=== PATIENT | male | born 1970 | race Caucasian/White ===

== ENCOUNTER 2023-12-28 06:34 | Emergency (ER) | payer OTHER ==
[2023-12-28 06:50] VITALS: BP 151/86; PULSE 97; RESP 20; TEMP 97.6; BMI 32.1
[2023-12-28] MEDS ORDERED: IBUPROFEN 400 MG TABLET (FP) PO ONE (08:33)
[2023-12-28] MEDS: IBUPROFEN 400 MG TABLET (FP) PO ONE (08:42)
== END 2023-12-28 09:50 | disposition home or self-care (01) ==
LOC: JER 06:34
DX: M79.602 Pain in left arm (principal); M79.652 Pain in left thigh; R51.9 Headache, unspecified; V43.52XA Car driver injured in collision with other type car in traffic accident, initial encounter; Y92.410 Unspecified street and highway as the place of occurrence of the external cause
CPT/HCPCS: 99283-25